=== PATIENT | male | born 1975 | race Caucasian/White ===

== ENCOUNTER → 2019-10-19 | Outpatient (CLI) | payer SELFPAY ==
--- NOTE | 2019-10-21 21:36 | US ---
EXAMINATION TYPE: US bladder DATE OF EXAM: 10/19/2019 COMPARISON: NONE CLINICAL HISTORY: 44-year-old male R35.0 Frequency of micturition. Patient unable to void fully EXAM MEASUREMENTS: Initial bladder volume was 406 mL. Post Void Residual Volume: 62.3 mL Color Doppler performed to assess ureteral jets. Bilateral Jets seen: yes Normal Post Void Residual (less than 50ml): no IMPRESSION: Sonographic findings compatible with urinary retention. Initial bladder volume of 406 mL. Postvoid bl adder volume elevated at 62 mL.
== END ==
LOC: RADUSWWP 16:09
PROVIDERS: ATTEND Family Medicine
DX: N39.8 Other specified disorders of urinary system (principal); R35.0 Frequency of micturition
CPT/HCPCS: 76857

== ENCOUNTER → 2019-10-30 | Outpatient (CLI) | payer OTHER ==
--- NOTE | 2019-10-31 05:29 | MR ---
EXAMINATION TYPE: MR angio head wo con DATE OF EXAM: 10/30/2019 COMPARISON: None HISTORY: Follow-up aneurysm. Aneurysm repair. Comparison none. TECHNIQUE: MR angiographic images were obtained of the intracerebral arterial circulation. There is arterial flow in the vertebrobasilar artery system. I see no flow in the posterior communica ting arteries. There is arterial flow in the anterior middle and posterior cerebral arteries. There i s no mass effect. I see no evidence of intracranial aneurysm or neovascularity. IMPRESSION: Negative MR angiogram of the brain.
== END | disposition home or self-care (01) ==
LOC: RADMRIMAIN 15:41
PROVIDERS: ATTEND Family Medicine
DX: I67.1 Cerebral aneurysm, nonruptured (principal)
CPT/HCPCS: 70544

== ENCOUNTER → 2022-01-05 | Outpatient (CLI) | payer OTHER ==
--- NOTE | 2022-01-05 12:43 | P.STRESS ---
- Stress Test Note Stress Test Results/Findings: Exam Performed: stress test Exam Date: 01/05/22 Reason for Exam: CHEST PAIN Height: 5 ft 9 in Weight: 109.5 kg Protocol: WILLIAM Stage: 3 Duration of Exercise: 9:00 Resting Heart Rate: 75 Resting Blood Pressure: 128/97 Maximum Achieved Heart Rate: 149 Maximum Achieved Blood Pressure: 175/103 85% PMHR: 146 100% PMHR: 172 METS: 10.3 Technologist Comment: Stress Test Results/Findings: : This patient is a 46-year-old gentleman being evaluated for symptoms of chest pain. Has history of hypertension, CVA and hypercholesterolemia. Stress data: Baseline EKG showed sinus rhythm with normal DE interval and QRS duration. Blood pressure at rest is 128/97 with pulse rate of 75. Patient walked on the William protocol for 9 minutes achieving a maximum heart rate of 149 with a blood pressure 175/103. EKGs taken during and after exercise did not reveal any significant change from the baseline. No arrhythmias are detected. Patient did not express any chest pain. Final impression: #1. Negative stress test #2. Patient did not experience any chest pain #3. No arrhythmias are detected #4. Patient's exercise capacity is fair
--- NOTE | 2022-01-06 08:45 | EST ---
Stress Test Results/Findings: Exam Performed: stress test Exam Date: 01/05/22 Reason for Exam: CHEST PAIN Height: 5 ft 9 in Weight: 109.5 kg Protocol: WILLIAM Stage: 3 Duration of Exercise: 9:00 Resting Heart Rate: 75 Resting Blood Pressure: 128/97 Maximum Achieved Heart Rate: 149 Maximum Achieved Blood Pressure: 175/103 85% PMHR: 146 100% PMHR: 172 METS: 10.3 Technologist Comment: Stress Test Results/Findings: : This patient is a 46-year-old gentleman being evaluated for symptoms of chest pain. Has history of hypertension, CVA and hypercholesterolemia. Stress data: Baseline EKG showed sinus rhythm with normal DC interval and QRS duration. Blood pressure at rest is 128/97 with pulse rate of 75. Patient walked on the William protocol for 9 minutes achieving a maximum heart rate of 149 with a blood pressure 175/103. EKGs taken during and after exercise did not reveal any significant change from the baseline. No arrhythmias are detected. Patient did not express any chest pain. Final impression: #1. Negative stress test #2. Patient did not experience any chest pain #3. No arrhythmias are detected #4. Patient's exercise capacity is fair MTDD
== END | disposition home or self-care (01) ==
LOC: RADNMMAIN 08:42
PROVIDERS: ATTEND Family Medicine
DX: R07.9 Chest pain, unspecified (principal)
CPT/HCPCS: 93017

== ENCOUNTER 2023-07-16 12:34 | Emergency (ER) | payer OTHER ==
[2023-07-16 13:11] VITALS: BP 133/85; PULSE 60; RESP 20; TEMP 98
--- NOTE | 2023-07-16 13:48 | XR ---
EXAMINATION TYPE: XR wrist complete RT DATE OF EXAM: 07/16/2023 COMPARISON: None HISTORY: Pain and tenderness lifting injury TECHNIQUE: 4 view right wrist FINDINGS: No acute fractures or dislocations are evident. Joint spaces are preserved. Soft tissues ar e normal. Follow up exams can be performed 7-10 days from acute trauma for continued pain. MRI can be performed if evaluation of the soft tissues would be of benefit. IMPRESSION: 1. No acute osseous abnormality right wrist.
--- NOTE | 2023-07-16 13:49 | XR ---
EXAMINATION TYPE: XR elbow complete RT DATE OF EXAM: 07/16/2023 COMPARISON: None HISTORY: Pain tenderness lifting injury TECHNIQUE: 3 view right elbow FINDINGS: Radius aligns normally with the humerus. No acute fracture or dislocation is evident. Anter ior fat-pad is normal. Posterior fat pad is normal. Follow up exams can be performed 7-10 days from acute trauma for continued pain IMPRESSION: 1. No acute osseous abnormality right elbow
--- NOTE | 2023-07-16 13:50 | XR ---
EXAMINATION TYPE: XR shoulder complete RT DATE OF EXAM: 07/16/2023 COMPARISON: None HISTORY: Pain TECHNIQUE: Shoulder examined in 3 projections. FINDINGS: The humeral head articulates with the glenoid. The acromio-clavicular junction is normal. No acute fractures or dislocations are evident. A follow up study can be performed 7-10 days from acute trauma for continued pain. MRI can be perfor med if soft tissue evaluation would be of benefit. IMPRESSION: 1. No acute osseous right shoulder abnormality.
[2023-07-16] MEDS ORDERED: ACET/COD 300 MG/30 MG STARTER PACK 6 TAB BTL PO STA (14:14)
--- NOTE | 2023-07-16 14:17 | ED ---
General Adult HPI - General Chief complaint: Extremity Injury, Upper Stated complaint: Right elbow pain Time Seen by Provider: 07/16/23 13:55 Source: patient, family, RN notes reviewed, old records reviewed Mode of arrival: ambulatory Limitations: no limitations - History of Present Illness Initial comments: Patient is a 48-year-old male with past medical history who reports to the emergency department for right shoulder and elbow pain. Also has chronic wrist pain. Patient has chronic right shoulder pain and wrist pain. Has known rotator cuff injury on the right. However now is also having right elbow pain. This all occurred while he was attempting to hold something up and do some heavy moving around the house. He somehow bent his arm strangely and since then has had increased pain. Able to have full range of motion. Has pain with movement. Has a history of prior stroke and his issues with his memory. His no other acute complaints at this time. Denies hitting his head or any other injuries. He is not on blood thinners. Has been taking Motrin for pain control. Injury occurred also days ago. Presents for further evaluation at this time. - Related Data Previous Rx's Medication Instructions Recorded HYDROcodone/APAP 10-325MG [Cornelia 1 tab PO Q4HR PRN #15 tab 07/26/15 10-325] Cyclobenzaprine [Flexeril] 5 mg PO BID PRN 7 Days #14 tablet 07/16/23 Allergies Allergy/AdvReac Type Severity Reaction Status Date / Time No Known Allergies Allergy Verified 07/26/15 09:50 Review of Systems ROS Statement: Those systems with pertinent positive or pertinent negative responses have been documented in the HPI. Review of Systems: CONST: Denies fever EYES: Denies blurry vision ENT: Denies nasal congestion C/V: Denies Chest pain RESP: Denies shortness of breath GI: Denies abdominal pain : Denies dysuria SKIN: Denies rash. MSK: Endorses right shoulder pain, elbow pain, wrist pain NEURO: Denies headache ROS Other: All systems not noted in ROS Statement are negative. Past Medical History Past Medical History: CVA/TIA, Hyperlipidemia, Hypertension Additional Past Medical History / Comment(s): back pain History of Any Multi-Drug Resistant Organisms: None Reported Additional Past Surgical History / Comment(s): brain stents, facial rec onstruction Past Psychological History: Anxiety Past Alcohol Use History: None Reported Past Drug Use History: Marijuana General Exam - General Exam Comments Initial Comments: General: Appears in no acute distress. HEAD: Normal with no signs of head trauma. EYES: EOMI. ENT: Hearing grossly intact. RESPIRATORY: No respiratory distress. C/V: Regular rate and rhythm. ABD: Abdomen is nondistended. EXT: No obvious deformity. Normal range of motion of all extremities. Tetanus palpation generally over the right shoulder. No focal tenderness palpation over the elbow just pain with movement. No tenderness to the wrist. Neuro Vascular intact throughout. SKIN: No rashes or lesions observed on exposed skin. NEURO: Alert and oriented. Limitations: no limitations Course Vital Signs 07/16/23 12:53 Temperature 98 F Pulse Rate 60 Respiratory 20 Rate Blood Pressure 133/85 O2 Sat by Pulse 98 Oximetry Medical Decision Making - Medical Decision Making Was pt. sent in by a medical professional or institution (, PA, CERTIFIED COURT/MEDICAL INTERPRETER, urgent care, hospital, or group home...) When possible be specific @ -No Did you speak to anyone other than the patient for history (EMS, parent, family, police, friend...)? What history was obtained from this source @ -No Did you review nursing and triage notes (agree or disagree)? Why? @ -I reviewed and agree with nursing and triage notes Were old charts reviewed (outside hosp., previous admission, EMS record, old EKG, old radiological studies, urgent care reports/EKG's, group home records)? Report findings @ -No old charts were reviewed Differential Diagnosis (chest pain, altered mental status, abdominal pain women, abdominal pain men, vaginal bleeding, weakness, fever, dyspnea, syncope, headache, dizziness, GI bleed, back pain, seizure, CVA, palpatations, mental health, musculoskeletal)? @ -Differential Musculoskeletal Muscular strain, contusion, ligament sprain, fracture, arthritis, septic arthritis, bursitis, cellulitis, muscle spasm, nerve compression, DVT, arterial occlusion, herpes zoster, electrolyte abnormality, tumor.... This is not meant to be in all inclusive list EKG interpreted by me (3pts min.). @ -None done X-rays interpreted by me (1pt min.). @ -X-rays of the right shoulder, wrist, elbow negative for any obvious injury. CT interpreted by me (1pt min.). @ -None done U/S interpreted by me (1pt. min.). @ -None done What testing was considered but not performed or refused? (CT, X-rays, U/S, labs)? Why? @ -None What meds were considered but not given or refused? Why? @ -None Did you discuss the management of the patient with other professionals (professionals i.e. , PA, CERTIFIED COURT/MEDICAL INTERPRETER, lab, RT, psych nurse, child welfare social worker, floor worker transfer bay, teacher, financial administration officer, manager rn case)? Give summary @ -No Was smoking cessation discussed for >3mins.? @ -No Was critical care preformed (if so, how long)? @ -No Were there social determinants of health that impacted care today? How? (Homelessness, low income, unemployed, alcoholism, drug addiction, transportation, low edu. Level, literacy, decrease access to med. care, halfway, rehab)? @ -No Was there de-escalation of care discussed even if they declined (Discuss DNR or withdrawal of care, Hospice)? DNR status @ -No What co-morbidities impacted this encounter? (DM, HTN, Smoking, COPD, CAD, Cancer, CVA, ARF, Chemo, Hep., AIDS, mental health diagnosis, sleep apnea, morbid obesity)? @ -None Was patient admitted / discharged? Hospital course, mention meds given and route, prescriptions, significant lab abnormalities, going to OR and other pertinent info. @ -East on the patient's presentation and physical exam, presents with acute on chronic pain in the right shoulder, elbow, wrist. No obvious injury and x- rays. I evaluated the patient after x-rays are completed. Discussed results with him as well as family members. They expressed understanding. He will be given a sling as well as a starter pack of Tylenol 3's and a prescription for muscle relaxer. Follow-up information for orthopedics will be administered as well. Patient was in agreement this plan. Strict return precautions discussed. I will provide the patient with a prescription for Flexeril. I instructed the patient to follow up with their PCP in the next 1-3 days. I provided contact information for follow up with orthopedics. I explained that the patient should return to the emergency department if they experience any worsening symptoms. Strict return precautions were discussed with the patient. The patient expressed understanding of these instructions. I answered all questions that the patient had. The patient was discharged home in good condition with their prescriptions and follow up information. Undiagnosed new problem with uncertain prognosis? @ -No Drug Therapy requiring intensive monitoring for toxicity (Heparin, Nitro, Insulin, Cardizem)? @ -No Were any procedures done? @ -No Diagnosis/symptom? @ -Right shoulder strain, right elbow strain Acute, or Chronic, or Acute on Chronic? @ -Acute Uncomplicated (without systemic symptoms) or Complicated (systemic symptoms)? @ -Uncomplicated Side effects of treatment? @ -No Exacerbation, Progression, or Severe Exacerbation? @ -No Poses a threat to life or bodily function? How? (Chest pain, USA, DC, pneumonia, PE, COPD, DKA, ARF, appy, cholecystitis, CVA, Diverticulitis, Homicidal, Suicidal, threat to staff... and all critical care pts) @ -No Disposition Clinical Impression: Right shoulder strain, Strain of right elbow Disposition: HOME SELF-CARE Condition: Good Instructions (If sedation given, give patient instructions): Elbow Sprain (ED), Shoulder Sprain (ED) Prescriptions: Cyclobenzaprine [Flexeril] 5 mg PO BID PRN 7 Days #14 tablet PRN Reason: Pain Is patient prescribed a controlled substance at d/c from ED?: No Referrals: Buck Christiansen MD [Primary Care Provider] - 1-2 days Danie Rodriguez DO [Doctor of Osteopathic Medicine] - 1-2 days Time of Disposition: 14:14
== END 2023-07-16 14:29 | disposition home or self-care (01) ==
LOC: EC 12:34
DX: S56.911A Strain of unspecified muscles, fascia and tendons at forearm level, right arm, initial encounter (principal); S66.911A Strain of unspecified muscle, fascia and tendon at wrist and hand level, right hand, initial encounter; I10 Essential (primary) hypertension; F12.90 Cannabis use, unspecified, uncomplicated; Z86.59 Personal history of other mental and behavioral disorders; X58.XXXA Exposure to other specified factors, initial encounter
CPT/HCPCS: 99283

== ENCOUNTER → 2023-08-25 | Outpatient (CLI) | payer OTHER ==
--- NOTE | 2023-08-30 08:49 | MR ---
EXAMINATION TYPE: MR shoulder RT wo con DATE OF EXAM: 08/25/2023 11:37 AM COMPARISON: NONE HISTORY: Right shoulder pain for 2 weeks due to catching heavy object. TECHNIQUE: Multiplanar multispin echo imaging of the right shoulder was performed. FINDINGS: Rotator cuff : There is thinning and heterogeneity of the supraspinatus tendon compatible chronic ten dinopathy. Focal increased signal at the insertion of the supraspinatus tendon may reflect partial te ar. Additional partial tear just proximal to the critical zone at the undersurface of the supraspinat us tendon. No evidence for a complete tear. The subscapularis constituent of the rotator cuff is inta ct. Bursa: No bursal effusion or thickening is seen. Musculature: There is no muscular tear, contusion, or atrophy. Acromioclavicular joint : Moderate AC joint arthropathy. Lateral downsloping of the acromion subacrom ial spurring resulting in impingement. Osseous structures : There are no fractures or regions of abnormal bone marrow signal intensity. Long biceps tendon : The biceps tendon is normally situated within the bicipital groove. No complete or partial biceps tendon tear is present. Glenohumeral Joint fluid : There is no glenohumeral joint effusion. Subchondral cyst formation tip l head. Cartilage and Bone : No focal hyaline cartilage defects are noted. No Hill-Sachs, reverse Hill-Sachs, or bony Bankart lesions are seen. Labrum : There are no SLAP or soft tissue Bankart lesions. No paralabral cysts are seen. OTHER FINDINGS : none IMPRESSION: 1. Chronic tendinopathy with that 2 foci of partial tear supraspinatus tendon suggested. Moderate AC joint arthropathy and subacromial impingement.
== END | disposition home or self-care (01) ==
LOC: RADMRIMAIN 10:17
PROVIDERS: ATTEND Orthopaedic Surgery
DX: M19.011 Primary osteoarthritis, right shoulder (principal); M25.811 Other specified joint disorders, right shoulder

== ENCOUNTER → 2024-10-03 | Outpatient (CLI) | payer OTHER ==
--- NOTE | 2024-10-03 11:50 | CT ---
EXAMINATION TYPE: CT brain wo con DATE OF EXAM: 10/03/2024 11:37 AM COMPARISON: None. CLINICAL INDICATION: Male, 49 years old with history of R413 OTHER AMNESIA, Increased confusion and m kaden loss. History of aneurysm/stroke TECHNIQUE: CT of the brain is performed utilizing 3 mm thick sections through the posterior fossa and 3 mm thick sections through the remaining calvarium. Study is performed within 24 hours of arrival to the hospital. Contrast used: mL of , (none if empty) CT DLP: 1195 mGycm, Automated exposure control for dose reduction was used. FINDINGS: No abnormal hyperdensity is present to suggest an acute intracranial hemorrhage. No mass lesion is evident. No acute infarcts are evident. There is old ischemic type change along the lateral left temporal lobe . There appears be an aneurysm clip within the left middle cranial fossa. There is some mild atrophy through the sylvian fissure on the left. Ventricles and sulci are otherwis e appropriate for the patient age. Retention cyst is within the right maxillary sinus. There is some mucosal thickening within the anter ior right ethmoid air cell Remaining paranasal sinuses and mastoid air cells are clear. IMPRESSION: 1. No acute intracranial process. Follow up MRI can be performed as clinically indicated. 2. Old ischemic type change temporal region with adjacent aneurysm clip. [facility], , 10/03/2024 11:48 AM
== END | disposition home or self-care (01) ==
LOC: RADCTMAIN 10:23
PROVIDERS: ATTEND Family Medicine
DX: R41.3 Other amnesia (principal); W19.XXXA Unspecified fall, initial encounter; I72.9 Aneurysm of unspecified site; I72.8 Aneurysm of other specified arteries; Z86.79 Personal history of other diseases of the circulatory system
CPT/HCPCS: 70450

== ENCOUNTER → 2024-11-12 | Outpatient (CLI) | payer OTHER ==
--- NOTE | 2024-11-12 11:52 | FL ---
EXAMINATION TYPE: FL barium swallow DATE OF EXAM: 11/12/2024 11:20 AM COMPARISON: . Chest radiograph from same day. CLINICAL INDICATION:Male, 49 years old with history of R13.10 dysphagia; TECHNIQUE: The procedure was explained and patient history elicited. All patient questions were ans wered prior to start of procedure. Multiple spot fluoroscopic images of the esophagus were obtained a fter the oral ingestion of effervescent crystals and liquid barium as the contrast agent. Fluoroscopic images:0 DAP: NOT REPORTED [id number] FINDINGS: The esophagus demonstrates normal primary and secondary peristalsis. Tertiary contractions are seen w ith delayed emptying of the esophageal contents. The esophageal mucosa is smooth without evidence of focal stricture, ulceration, or abnormal outpouching. No gastroesophageal reflux disease was identif ied IMPRESSION: Moderate to severe esophageal dysmotility. [facility], , 11/12/2024 11:50 AM
== END | disposition home or self-care (01) ==
LOC: RADFLMAIN 10:27
PROVIDERS: ATTEND Family Medicine
DX: K22.4 Dyskinesia of esophagus (principal)
CPT/HCPCS: 74220

== ENCOUNTER 2025-04-01 08:13 | Day surgery (SDC) | payer OTHER ==
[~2025-04-01 08:13] MED LIST: LIDOCAINE 1% (10MG/ML) FOR IV START INTRADERMA PRN
[2025-04-01] MEDS: IV FLUID CONTINUATION 1,000 ML IV ONE (09:18)
[2025-04-01 09:28] VITALS: TEMP 97.1
[2025-04-01] MEDS: LACTATED RINGERS 1,000 ML IV SCH (09:30)
[2025-04-01] MEDS ORDERED: PROPOFOL 10 MG/ML 20 ML VIAL IV ONE (10:08)
[2025-04-01] MEDS ORDERED: LIDOCAINE 1% INJ 10MG/ML (20 ML MDV) ONE (10:08)
[2025-04-01 10:44] VITALS: BP 126/93; PULSE 52; RESP 16
--- NOTE | 2025-04-01 14:16 | P.OP ---
Date of Procedure: 04/01/25 Preoperative Diagnosis: Screening Postoperative Diagnosis: Normal Colon Procedure(s) Performed: Colonoscopy Anesthesia: MAC Surgeon: Emeka Fernandez Pathology: none sent Condition: stable Disposition: PACU Description of Procedure: After informed consent was obtained, the patient was placed in the left lateral position and sedated. Monitoring was provided throughout the entire procedure. Digital rectal exam was performed revealing normal sphincter tone and no external hemorrhoids. The colonoscope was inserted into rectum and advanced under direct visualization, without difficulty, to the cecum, where the cecal strap, appendiceal orifice, and the ileocecal valve were identified. The quality of the preparation was good. The colonoscope was then withdrawn while carefully examining the mucosa. The colonic mucosa appeared normal with normal vascularity and haustral markings. No masses, polyps, AVM/s or diverticula were seen. On retroflexed view in the rectum, there were no internal hemorrhoids. The endoscope was removed and the procedure terminated. The patient tolerated the procedure well without complications.
== END 2025-04-01 10:59 | disposition home or self-care (01) ==
LOC: ORWHC2ENDO 08:13
PROVIDERS: ATTEND Surgery
DX: Z12.11 Encounter for screening for malignant neoplasm of colon (principal); I10 Essential (primary) hypertension; E78.5 Hyperlipidemia, unspecified; F41.9 Anxiety disorder, unspecified; R13.10 Dysphagia, unspecified; Z79.82 Long term (current) use of aspirin; Z79.899 Other long term (current) drug therapy; Z86.73 Personal history of transient ischemic attack (TIA), and cerebral infarction without residual deficits
CPT/HCPCS: 45378; J2003; J2704